=== PATIENT | female | born 2000 | race Caucasian/White ===

== ENCOUNTER 2018-12-15 21:56 | Emergency (ER) | payer BC ==
[~2018-12-15] VITALS: Ht 160 cm; Wt 59.0 kg
--- NOTE | 2018-12-15 21:59 | NUR ---
AMBULATED TO ER BED 2
[2018-12-15 22:00] VITALS: BP 149/91
--- NOTE | 2018-12-15 22:11 | NUR ---
PT TO ED WITH C/O COLD SYMPTOMS WITH COUGH AND SORE THROAT. LUNG SOUNDS CLEAR TO ASCULTATION BILAT. NO S/S OF DISTRESS AT THIS TIME. PT PLACED INTO BED, PENDING MD LOUIE. PMH--VIRAL INDUCED ASTHMA RX--DENIES
[2018-12-15] MEDS ORDERED: ALBUTEROL 0.083% 2.5 MG/3 ML NEBU INH ONE (23:00)
[2018-12-16] MEDS ORDERED: predniSONE 20 MG TAB PO ONE (00:10)
[2018-12-16 00:22] VITALS: BP 121/69
--- NOTE | 2018-12-16 00:23 | NUR ---
Patient discharged with v/s stable. Written and verbal after care instructions given and explained. Patient alert, oriented and verbalized understanding of instructions. Ambulatory with steady gait. All questions addressed prior to discharge. ID band removed. Patient advised to follow up with PMD. Rx of PREDNISONE, ALBUTEROL given. Patient educated on indication of medication including possible reaction and side effects. Opportunity to ask questions provided and answered.
--- NOTE | 2018-12-18 22:00 | NUR ---
Pt contacted and informed of throat culture result. Dr Mercado to call a Rx in to [facility] at .
== END 2018-12-16 00:22 | disposition home or self-care (01) ==
LOC: MED 21:56
DX: J20.9 Acute bronchitis, unspecified (principal); J45.909 Unspecified asthma, uncomplicated; Z88.1 Allergy status to other antibiotic agents; Z88.2 Allergy status to sulfonamides
CPT/HCPCS: 36415; 71045; 87081; 87804; 94640; 99284; J7512; J7613